=== PATIENT | male | born 1940 | race Caucasian/White ===

== ENCOUNTER 2021-02-04 13:54 | Emergency (ER) | payer MEDICARE, BC ==
[2021-02-04 14:19] VITALS: BP 160/74; PULSE 66
--- NOTE | 2021-02-04 15:09 | EDM.PDOC ---
ED HPI GENERAL MEDICAL PROBLEM - General Chief Complaint: General Stated Complaint: NOT FEELING WELL, FEELS LIKE PASSING OUT Time Seen by Provider: 02/04/21 15:08 Source of Information: Reports: Patient History Limitations: Reports: No Limitations - History of Present Illness INITIAL COMMENTS - FREE TEXT/NARRATIVE: pt was out mowing today for most of the morning. He came in and he was very dizzy and felt like he was going to pass out. He did not have chest pain. Onset: Today, Sudden Duration: Hour(s): Location: Reports: Generalized Associated Symptoms: Reports: Cough, Weakness - Related Data Allergies Allergy/AdvReac Type Severity Reaction Status Date / Time No Known Allergies Allergy Verified 02/04/21 14:27 Home Meds: Home Meds Aspirin [Children's Aspirin] 81 mg PO DAILY 09/25/15 [History] HCTZ/Triamterene [Maxzide 25-37.5 MG] 0.5 tab PO DAILY 09/25/15 [History] Lisinopril [Prinivil] 20 mg PO DAILY 09/25/15 [History] Multivitamin with Minerals [Multiple Vitamin] 1 tab PO DAILY 09/25/15 [History] metFORMIN [Glucophage] 1,000 mg PO WITHDINNER 09/25/15 [History] metFORMIN [Glucophage] 500 mg PO QAM 09/25/15 [History] Semaglutide [Ozempic] 0.5 mg SQ WEEKLY 02/04/21 [History] Past Medical History HEENT History: Reports: Cataract, Hard of Hearing, Impaired Vision Cardiovascular History: Reports: Hypertension Gastrointestinal History: Reports: None Endocrine/Metabolic History: Reports: Diabetes, Type II, Obesity/BMI 30+ Oncologic (Cancer) History: Reports: Other (See Below) Other Oncologic History: skin Dermatologic History: Reports: Other (See Below) Other Dermatologic History: skin cancer unsure what kind - Infectious Disease History Infectious Disease History: Reports: Chicken Pox, Measles - Past Surgical History HEENT Surgical History: Reports: Cataract Surgery Cardiovascular Surgical History: Reports: None, Coronary Artery Bypass GI Surgical History: Reports: Colonoscopy Endocrine Surgical History: Reports: None Oncologic Surgical History: Reports: None Dermatological Surgical History: Reports: Skin Biopsy Social & Family History - Tobacco Use Tobacco Use Status *Q: Never Tobacco User Second Hand Smoke Exposure: No - Caffeine Use Caffeine Use: Reports: Coffee, Tea - Recreational Drug Use Recreational Drug Use: No ED ROS GENERAL - Review of Systems Review Of Systems: See Below Constitutional: Reports: Weakness, Fatigue, Other (pt felt like he was going to pass out. ) HEENT: Reports: No Symptoms Respiratory: Reports: No Symptoms Cardiovascular: Reports: No Symptoms Endocrine: Reports: No Symptoms GI/Abdominal: Reports: No Symptoms : Reports: No Symptoms Musculoskeletal: Reports: No Symptoms Skin: Reports: No Symptoms ED EXAM, GENERAL - Physical Exam Exam: See Below Free Text/Narrative:: pt arrived with the sensation of being weak and like he was going to pass out. Exam Limited By: No Limitations General Appearance: Alert, No Apparent Distress, Anxious, Other (pupils are equal and reactive. ) Ears: Normal TMs Nose: Normal Inspection Throat/Mouth: Normal Inspection Head: Atraumatic Neck: Normal Inspection Respiratory/Chest: No Respiratory Distress Cardiovascular: Regular Rate, Rhythm GI/Abdominal: Soft, No Mass (Male) Exam: Deferred Rectal (Males) Exam: Deferred Back Exam: Normal Inspection Extremities: Normal Inspection Neurological: Alert, Oriented, Normal Cognition Psychiatric: Anxious Course - Vital Signs Last Recorded V/S: Last Vital Signs Temp 36.2 C 02/04/21 14:29 Pulse 66 02/04/21 14:29 Resp 15 02/04/21 14:29 BP 160/74 H 02/04/21 14:29 Pulse Ox 95 02/04/21 14:29 Orthostatic Blood Pressure [ 162/81 Standing] Orthostatic Blood Pressure [ 175/81 Sitting] Orthostatic Blood Pressure [ 170/81 Supine] - Orders/Labs/Meds Labs: Laboratory Tests 02/04/21 02/04/21 02/04/21 Range/Units 15:34 15:34 16:48 WBC 11.7 H (4.5-11.0) K/uL RBC 5.41 (4.30-5.90) M/uL Hgb 15.0 (12.0-15.0) g/dL Hct 45.1 (40.0-54.0) % MCV 83 (80-98) fL MCH 28 (27-31) pg MCHC 33 (32-36) % Plt Count 272 (150-400) K/uL Neut % (Auto) 82.4 H (36-66) % Lymph % (Auto) 12.6 L (24-44) % Coleman % (Auto) 4.9 (2-6) % Eos % (Auto) 0.1 L (2-4) % Baso % (Auto) 0.0 (0-1) % Sodium 139 L (140-148) mmol/L Potassium 3.9 (3.6-5.2) mmol/L Chloride 103 (100-108) mmol/L Carbon Dioxide 23 (21-32) mmol/L Anion Gap 16.9 H (5.0-14.0) mmol/L BUN 21 H (7-18) mg/dL Creatinine 0.9 (0.8-1.3) mg/dL Est Cr Clr Drug Dosing 55.73 mL/min Estimated GFR (MDRD) > 60 (>60) Glucose 122 H (74-106) mg/dL Calcium 7.9 L (8.5-10.1) mg/dL Total Bilirubin 0.5 (0.2-1.0) mg/dL AST 17 (15-37) U/L ALT 25 (12-78) U/L Alkaline Phosphatase 73 (46-116) U/L Troponin I < 0.017 (0.000-0.056) ng/mL Total Protein 6.2 L (6.4-8.2) g/dL Albumin 3.5 (3.4-5.0) g/dL Globulin 2.7 (2.3-3.5) g/dL Albumin/Globulin Ratio 1.3 (1.2-2.2) Urine Color Yellow (YELLOW) Urine Appearance Clear (CLEAR) Urine pH 6.0 (5.0-8.0) Ur Specific [place] 1.020 (1.008-1.030) Urine Protein Negative (NEGATIVE) mg/dL Urine Glucose (UA) 500 H (NEGATIVE) mg/dL Urine Ketones 40 H (NEGATIVE) mg/dL Urine Occult Blood Small H (NEGATIVE) Urine Nitrite Negative (NEGATIVE) Urine Bilirubin Negative (NEGATIVE) Urine Urobilinogen 0.2 (0.2-1.0) EU/dL Ur Leukocyte Esterase Negative (NEGATIVE) Urine RBC 0-5 (0-5) Urine WBC Not seen (0-5) Ur Epithelial Cells Rare Amorphous Sediment Rare Urine Bacteria Rare Urine Mucus Not seen Meds: Medications Discontinued Medications Generic Name Dose Route Start Last Admin Trade Name Freq PRN Reason Stop Dose Admin Sodium Chloride 1,000 mls @ 999 mls/hr 02/04/21 15:15 02/04/21 15:33 Normal Saline IV 999 mls/hr ASDIRECTED CICI Administration Sodium Chloride 1,000 mls @ 400 mls/hr 02/04/21 17:00 Normal Saline IV ASDIRECTED CICI - Re-Assessments/Exams Free Text/Narrative Re-Assessment/Exam: 02/04/21 17:26 pt had ekg which did not show acute changes. He had a normal trop. He was given a liter of fluid and he feels good. His labs look good except is dehydrated. Departure - Departure Time of Disposition: 17:40 Disposition: Home, Self-Care 01 Condition: Fair Clinical Impression: Dehydration - Discharge Information Instructions: Dehydration, Elderly, [id number] Referrals: Gary Altaimrano [employer] [Primary Care Provider] - Forms: ED Department Discharge Care Plan Goals: low activity, push fluids, cont same meds. Sepsis Event Note (ED) - Evaluation Sepsis Screening Result: No Definite Risk
[2021-02-04] MEDS ORDERED: Sodium Chloride 0.9% 1,000 ML IV SCH ×2 (15:15→17:00)
== END 2021-02-04 17:36 | disposition home or self-care (01) ==
LOC: JP.ED 13:54
DX: E86.0 Dehydration (principal); I10 Essential (primary) hypertension; E11.9 Type 2 diabetes mellitus without complications; E66.9 Obesity, unspecified; Z68.30 Body mass index [BMI] 30.0-30.9, adult; Z79.84 Long term (current) use of oral hypoglycemic drugs; Z79.82 Long term (current) use of aspirin; Z79.899 Other long term (current) drug therapy
CPT/HCPCS: 36415; 80053; 81001; 84484; 85025; 93005; 99285; J7030

== ENCOUNTER 2023-04-03 14:53 | Emergency (ER) | payer MEDICARE, BC ==
[2023-04-03 16:00] VITALS: BP 150/72; PULSE 74
[2023-04-03] MEDS ORDERED: Sodium Phosphate,Monobasic/Sodium Phosphate,Dibasic Enema 133 ML Bottle RECTAL ONE (16:49)
== END 2023-04-03 17:33 | disposition home or self-care (01) ==
LOC: JP.ED 14:53
DX: K59.00 Constipation, unspecified (principal); I10 Essential (primary) hypertension; E11.9 Type 2 diabetes mellitus without complications; E66.9 Obesity, unspecified; Z79.82 Long term (current) use of aspirin; Z79.84 Long term (current) use of oral hypoglycemic drugs; Z95.5 Presence of coronary angioplasty implant and graft; Z68.33 Body mass index [BMI] 33.0-33.9, adult
CPT/HCPCS: 99283; A9270